=== PATIENT | male | born 1950 | race Caucasian/White ===

== ENCOUNTER → 2019-03-27 | Day surgery (SDC) | payer MEDICARE, OTHER ==
[~2019-03-27] MED LIST: ACETAMINOPHEN 325 MG TABLET PO PRN; ALBUTEROL SULFATE 2.5 MG/3 ML NEBU. NEB PRN; ATOR20TA58 PO; ATROPINE 0.5 MG/5 ML DISP.SYRIN. IV PRN; CARV20CP PO; CARV25TA PO; LISI-334 PO; ONDANSETRON PF 4 MG/2 ML VIAL. IV PRN; PHENOL ORAL SPRAY 177ML BOTTLE. MM PRN; PROPOFOL 40 ML IV ONE; diphenhydrAMINE 50 MG/ML VIAL IV PRN
[2019-03-27] MEDS: IV RINGERS SOLUTION,LACTATED 1,000 ML IV SCH ×2 (07:59→09:02)
[2019-03-27 10:55] VITALS: BP 140/79
== END ==
LOC: SURG 07:34
PROVIDERS: ATTEND Internal Medicine Gastroenterology
DX: Z12.11 Encounter for screening for malignant neoplasm of colon (principal); K57.30 Diverticulosis of large intestine without perforation or abscess without bleeding; I10 Essential (primary) hypertension; E78.5 Hyperlipidemia, unspecified; Z87.39 Personal history of other diseases of the musculoskeletal system and connective tissue; Z85.46 Personal history of malignant neoplasm of prostate; Z98.890 Other specified postprocedural states
CPT/HCPCS: G0121; J2704; J7120; 45378